=== PATIENT | female | born 1990 | race Hispanic/Latino ===

== ENCOUNTER 2021-03-15 18:05 | Inpatient (IN) | payer OTHER ==
[~2021-03-15] VITALS: Ht 172.7 cm; Wt 106.0 kg
[2021-03-15] MEDS ORDERED: RIBO400T PO ×2 (18:20)
[2021-03-15] MEDS ORDERED: TUMS750C22 PO (18:20)
[2021-03-15] MEDS ORDERED: GNP250TA9 PO (18:21)
[2021-03-15] MEDS ORDERED: HOME MED LIST COMPLETE! XX SCH (18:25)
[2021-03-15 18:28] VITALS: BP 120/76
[2021-03-15 18:56] LABS: HEMATOCRIT 37.9 % (36.0-47.0); HEMOGLOBIN 12.6 g/dl (12.0-15.5); MEAN CORPUSCULAR HEMOGLOBIN 27.8 pg (27.0-33.0); MEAN CORPUSCULAR HGB CONC 33.2 g/dl (32.0-36.5); MEAN CORPUSCULAR VOLUME 83.7 fl (80.0-96.0); PLATELET COUNT, AUTOMATED 278 10^3/uL (150-450); RED BLOOD COUNT 4.53 10^6/uL (4.00-5.40); WHITE BLOOD COUNT 10.4 10^3/uL (4.0-10.0)
[2021-03-15 20:24] VITALS: BP 134/73
[2021-03-15] MEDS ORDERED: METHYLERGONOVINE MALEATE 0.2 MG/ML VIAL (J2210) IM PRN (20:40)
[2021-03-15] MEDS ORDERED: OXYTOCIN DRIP 30 UNITS in IV 1 EA IV PRN ×6 (20:40)
[2021-03-15] MEDS ORDERED: OXYTOCIN INJ 10 UNITS/ML VIAL (J2590) IV PRN (20:40)
[2021-03-15] MEDS ORDERED: LIDOCAINE 1% MDV 20ML VIAL INFIL PRN (20:40)
[2021-03-15] MEDS ORDERED: OXYTOCIN DRIP 30 UNITS in IV 1 EA IV SCH (20:40)
[2021-03-15] MEDS ORDERED: CARBOPROST TROMETHAMINE 250 MCG/ML AMP IM PRN (20:40)
[2021-03-15] MEDS ORDERED: miSOPROStol 25MCG 1/4 TABLET PO ONE (20:40)
[2021-03-15] MEDS: LR 1,000 ML IV SCH (21:13)
[2021-03-15 21:15] VITALS: BP 117/71
--- NOTE | 2021-03-15 21:26 | HPEPDOC ---
Obstetrical History & Physical General Date of Admission Mar 15, 2021 at 18:05 History of Present Illness The patient is a 30yo at 41+1 week gestation by 11 week ultrasound. She presents to L&D today for induction of labor secondary to post-dates. She denies any vaginal bleeding, abnormal vaginal discharge, leakage of fluids, urinary symptoms, or regular contractions. She denies any new headaches, visual abnormalities, chest pain, worsening dyspnea, facial swelling, or upper extremity swelling. At this time, she continues to report regular movement. Chief Complaint: Induction of labor Care Care: Good Care Dating Final EDC: Mar 07, 2021 Final EDC by: 1st trimester (US) 1st Trimester Date: Aug 21, 2020 Weeks + Days: 11 (11+5) EGA at Admission: 41 (41+1) Antepartum Course Diagnos(e)s APC: 1. varicella non immune- will vaccine 2. migraines 3. varicose veines 4. excessive weight gain Height (inches): 68 Pre- weight (lbs.): 189 Admission Weight (lbs.): 233 Change in Weight (lbs.): 44 Past Medical History Past Obstetrical History : Past Obstetrical History: Multigravida Type of Delivery: Spontaneous Vaginal Del. Sex of Infant: Female Complications: No [employer] History: No pertinent history Past Medical History Medical History denies Family History Significant Family History: No pertinent family hx Social History Marital Status: Family situation: Spouse/partner home Psychosocial History: No pertinent psych hx * Smoker: non-smoker Alcohol: Denies Drugs: denies Abuse Violence Screening Have you been hit/kicked/slapp: No Have you been sexually assault: No Imunizations Tdap status: current Allergies Coded Allergies: No Known Allergies (Unverified , 03/15/21) Medications Scheduled Magnesium Oxide (Magnesium) 250 Mg Tablet, 1 TAB PO DAILY Riboflavin (Vitamin B2) (Riboflavin) 400 Mg Tablet, 1 TAB PO BID Riboflavin (Vitamin B2) (Riboflavin) 400 Mg Tablet, 1 TAB PO DAILY Scheduled PRN Calcium Carbonate (Tums) 300 Mg Tab.chew, 1 TAB PO BID PRN for HEARTBURN Physical Examination Physical Examination GENERAL: Alert and oriented times three. BREAST: . ABDOMEN: Gravid and non-tender to touch. FETUS: Is vertex (VTX) by sterile vaginal examination (SVE) HEART RATE: Regular rate and rhythm. LUNGS:normal work of breathing. EXTREMITIES: No edema. SVE: 350/-3 Vital Signs/I&O Vital Signs Date Time Temp Pulse Resp B/P (MAP) Pulse Ox O2 Delivery O2 Flow Rate FiO2 03/15/21 18:28 98.1 115 20 120/76 (91) Laboratory Data 24H LABS Laboratory Tests 2 03/15/21 18:36: Serology Scanned Report Hepatitis B Testing 03/15/21 18:40: Nucleated Red Blood Cells % (auto) 0.0, Syphilis Serology NONREACTIVE CBC/BMP Laboratory Tests 03/15/21 18:40 Urine Culture: No Growth Pertinent Laboratoy Data Blood Type: O+ RBC Antibody Screen: Negative HIV: Negative Hepatitis B: Negative Hepatitis C: Unknown Rapid Plasma Reagin: Nonreactive Rubella: Immune Varicella: Nonreactive Chlamydia/Gonorrhea: Negative Group B Streptococcus: Negative Quad Screen Test: Negative Cystic Fibrosis: Negative Glucose Tolerance Test: 113 Anatomy Ultrasound Placenta Location: Anterior Normal Anatomy: Yes Placenta Previa: No Vaginal Examination Dilation: 3 cm Effacement: 50% Station: -3 Cervical Consistency: Medium Cervical Position: Middle Presentation: Cephalic presentation Assessment Heart Rate (FHR): 135 Variability: Moderate Accelerations: Positive Decelerations: Late Tocometer Contractions: Yes Frequency: irregular Multi-drug resistant Organism: No history of MDRO Assessment/Plan Assessment Assessment: The patient is a 30yo at 41+1 week gestation by 11 week ultrasound. She presents to L&D today for induction of labor secondary to post- dates. Pelvis proven to 8lbs 4 oz. Pelvis Adequate for trial of labor. Category II FHRT, with intermitted late decels. APC: 1. varicella non immune- will vaccine 2. migraines 3. varicose veines 4. excessive weight gain #44LB SVE: 350/-3 GBS NEG Cephalic by exam EFW 3600 RH POS Placenta anterior, no previa Plan Plan: - Admit to L&D. - Consent signed and given to RN - CBC with type and screen. - EFM x2 - Anesthesia to see -Start fluid bolus and intrauterine rescussitation at this time and see if baby will recover, if patient does not pass contraction stress test, will proceed with CD - Risks of augmentation with Pitocin discussed with patient, will start augmentation if passes contraction stress test.. Labor and Delivery Counseling We will deliver your baby through the vagina with possible assistance of forceps or vacuum device if needed for maternal or indications. Forceps and vacuum are devices that can assist with vaginal delivery when normal pushing efforts cannot achieve delivery on their own or when delivery is needed in an emergency for baby's well-being. Medications may be required to induce or augment (help) your labor in order to achieve a vaginal delivery. An episiotomy may be required to help your baby to delivery vaginally. You may also require repair of any lacerations or tears of your vagina or vulva that are caused by delivery. In some cases, emergencies can occur that require an emergency section delivery so quickly that there may not be enough time to stop and complete consent forms for section. Understand that if this occurs, your providers will discuss the need for a section with you before they proceed with surgery. section is the delivery of your baby through an incision in your abdomen. In some situations, section may be safer to mom and baby than continuing labor and is only performed when clinically indicated. Risks of vaginal delivery include but are not limited to: Bleeding, infection, injury to the vagina, pelvic structures, injury to baby, damage to the uterus, reactions to anesthesia, uterine rupture, risk of hysterectomy for life threatening bleeding, or . Medications used to induce or augment labor may increase your risk for infection, uterine tachysystole, uterine rupture, heart rate abnormalities, need for emergency delivery or possible hysterectomy, and hemorrhage. Additional risks for use of forceps and vacuum include: increased risk of perineal and vaginal lacerations, risk of urinary or bowel incontinence, increased risk of injury to baby with bruising, scratches, hematomas on the head, or intracranial bleeding. TOÑO VILLAGOMEZ MD Mar 15, 2021 21:26
[2021-03-15 22:15] VITALS: BP 118/73
[2021-03-16] VITALS (32 sets, daily range): BP systolic 100–139; BP diastolic 54–98
[2021-03-16] MEDS: LR 1,000 ML IV SCH (04:16)
[2021-03-16] MEDS ORDERED: FENTANYL 2MCG/ML ROPIVACAINE 0.2% IN 0.9% NACL 100ML IVBAG As Ordered ONE (07:17)
[2021-03-16] MEDS ORDERED: LACTATED RINGER'S 1000 ML IV PRN (07:48)
[2021-03-16] MEDS ORDERED: NALOXONE INJ 0.4MG/1ML VIAL (J2310 PER 1MG) IV PRN (07:48)
[2021-03-16] MEDS ORDERED: FENTANYL/ROPIVACAINE/NACL BAG 100 ML EPIDURAL SCH (07:48)
[2021-03-16] MEDS ORDERED: EPIDURAL COMMENT XX SCH (07:48)
[2021-03-16] MEDS ORDERED: ePHEDrine SULFATE 25 MG/5 ML(5MG/ML) SYRINGE IV PRN (07:48)
[2021-03-16] MEDS ORDERED: EPIDURAL/PCA KEYS XX PRN (07:48)
[2021-03-16] MEDS ORDERED: ONDANSETRON 4MG/2ML VIAL IV PRN (07:48)
[2021-03-16] MEDS ORDERED: diphenhydrAMINE 50MG/ML VIAL (J1200) IV PRN (07:48)
[2021-03-16] MEDS ORDERED: REFRIGERATOR IV KEYS XX PRN (07:48)
--- NOTE | 2021-03-16 08:18 | IPNPDOC ---
Obstetrical Progress Note Date of Service Mar 16, 2021 Objective Vital Signs Date Time Temp Pulse Resp B/P (MAP) Pulse Ox O2 Delivery O2 Flow Rate FiO2 03/16/21 06:43 98.0 77 18 118/74 (89) Assessment Variability: Moderate Accelerations: Positive Decelerations: None Heart Rate Tracing: Category I Tocometer Contractions: Yes Frequency: regular Sterile Vaginal Examination Dilation: 5 cm Effacement (%): 70% Station: -2 Assessment and Plan Additional Comments NST CAT I reactive. SVE 5/75/-2. AROM meconium. Epidural in place and patient is comfortable. Will continue IOL with pitocin. KEESHA MARIN DO Mar 16, 2021 08:17
[2021-03-16] MEDS ORDERED: ACETAMINOPHEN TAB 650MG DOSE (2X325MG) PO PRN (11:55)
[2021-03-16] MEDS ORDERED: DOCUSATE SODIUM 100MG CAPSULE PO PRN (11:55)
[2021-03-16] MEDS ORDERED: ACETAMINOPHEN 500 MG TAB PO PRN (11:55)
[2021-03-16] MEDS ORDERED: IBUPROFEN 600MG TAB PO PRN (11:55)
[2021-03-16 12:02] LABS: CORD GAS ABE A -6.7; CORD GAS HCO3 A 21.1 MEQ/L; CORD GAS O2 SAT A 77.9 %; CORD GAS PCO2 A 50.4 mmHg; CORD GAS PH A 7.24 UNITS; CORD GAS PO2 A 40.9 mmHg; CORD GAS SBC A 18.7 MEQ/L; CORD GAS TCO2 A 22.7 MEQ/L
[2021-03-16 12:04] LABS: CORD GAS ABE V -3.2; CORD GAS HCO3 V 24.3 MEQ/L; CORD GAS O2 SAT V 44.9 %; CORD GAS PH V 7.28 UNITS; CORD GAS SBC V 20.5 MEQ/L
--- NOTE | 2021-03-16 12:06 | DNPDOC ---
[facility] Delivery Note Delivery Note DATE OF DELIVERY: 03/16/21 PREDELIVERY DIAGNOSIS: 41+2/7 weeks, induction of labor for late term POST DELIVERY DIAGNOSIS: Delivered. PROCEDURE: vaginal delivery, labial laceration repair SPECIAL TESTER: Dr. Mark Marin DO ANESTHESIA: epidural ESTIMATED BLOOD LOSS: 200 mL. FINDINGS: 3870g , Score 8/9, nuchal cord times 0 DELIVERY SUMMARY: Ms. Monteiro is a 30yo at 41+2 who was admitted for induction of labor for late term. She progressed to C/C/+3 and with good maternal effort delivered the head followed by the corpus without difficulty. The baby had spontaneous movement and cry. The cord clamping was delayed 60s then was cut by the father of the baby. Cord blood and gasses were obtained. The placenta was delivered in-tact, thick clot and port wine appearing stain were noted. It was sent for pathology. The uterus was firm with bimanual massage and pitocin. Vicryl rapid was used to repair a right labial laceration. Vaginal bleeding remained scant. The sponge, lap and needle counts were correct. There were no complications. MARK MARIN DO Mar 16, 2021 12:06
[2021-03-16] MEDS ORDERED: HOME MED LIST COMPLETE! XX SCH (14:20)
[2021-03-16] MEDS ORDERED: PRENTAB9 PO (14:41)
[2021-03-16] MEDS ORDERED: TUMS750C22 PO (14:41)
[2021-03-16] MEDS ORDERED: ESSE250T PO (14:41)
[2021-03-16] MEDS ORDERED: RIBO400T PO (14:41)
[2021-03-16] MEDS: IBUPROFEN 800 MG TAB PO PRN (17:24)
[2021-03-17 06:00] VITALS: BP 131/83
--- NOTE | 2021-03-17 07:40 | IPNPDOC ---
Progress Note Date of Service: Mar 17, 2021 Day#: 1 Progress Note SUBJECT: Ms. Monteiro is a 30yo PPD2 s/p after induction for late term. She has been ambulating, voiding spontaneously without issue and tolerating regular diet. Breast feeding without issue. Reports lochia is less than a normal period. Patient is ambulating well. Reports some cramping with . Denies any pain. Voiding and passing flatus without difficulty. OBJECTIVE: VITAL SIGNS: Within normal limits, afebrile. Alert and oriented times three. No increased WOB Heart rate: non-tachycardic Abdomen: Fundus firm at U-2. Soft, NTTP. [Minimal] lochia per patient ASSESSMENT: Ms. Monteiro is a 30yo PPD2 s/p after induction for late term. Vitals within normal limits, afebrile, hemodynamically stable with no evidence of infection. PLAN: 1. Discharge to home today. 2. Tylenol and Motrin for pain. 3. Encourage breast feeding and ambulation. 4. Desires interval IUD for contraception. 5. Routine PP visit in 6 weeks in clinic. 6. Discussed return precautions at length and activity limitations (pelvic rest). 7. Encouraged varicella vaccination. VS, I&O, 24H, Fishbone Vital Signs/I&O Vital Signs Date Time Temp Pulse Resp B/P (MAP) Pulse Ox O2 Delivery O2 Flow Rate FiO2 03/17/21 06:00 98.2 66 18 131/83 (99) 99 Room Air I&O- Last 24 Hours up to 6 AM 03/17/21 06:00 Intake Total 2300 ml Output Total 800 ml Balance 1500 ml Laboratory Data 24H LABS Laboratory Tests 2 03/16/21 11:54: Cord Arterial Blood pH 7.240, Cord Arterial Blood PCO2 50.4, Cord Arterial Blood PO2 40.9, Cord Arterial Blood HCO3 21.1, Cord Arterial Blood Total CO2 22.7, Cord Arterial Blood Base Excess -6.7, Cord Arterial Base Excess (Standard 18.7, Cord Arterial Bld Oxygen Saturation 77.9, Cord Venous Blood pH 7.280, Cord Venous Blood PCO2 53.0, Cord Venous Blood PO2 22.0, Cord Venous Blood HCO3 24.3, Cord Venous Blood Total CO2 26.0, Cord Venous Base Excess (Actual) -3.2, Cord Venous Base Excess (Standard) 20.5, Cord Venous Blood Oxygen Saturation 44.9 KEESHA MARIN DO Mar 17, 2021 07:40
--- NOTE | 2021-03-17 07:41 | OBDS ---
[facility] Obstetrical Discharge Sum. A/P, Post Course List any complications Ms. Monteiro is a 30yo who had a vaginal delivery after induction for late term. She has been ambulating, voiding spontaneously without issue and tolerating regular diet. Breast feeding without issue. Reports lochia is less than a normal period. Patient is ambulating well. Reports some cramping with . Denies any pain. Voiding and passing flatus without difficulty. Vitals within normal limits, afebrile, hemodynamically stable with no evidence of infection. PLAN: 1. Discharge to home today. 2. Tylenol and Motrin for pain. 3. Encourage breast feeding and ambulation. 4. Desires interval IUD for contraception. 5. Routine visit in 6 weeks in clinic. 6. Discussed return precautions at length and activity limitations (pelvic rest). 7. Encouraged varicella vaccination. KEESHA MARIN DO Mar 17, 2021 07:41
[2021-03-17] MEDS: IBUPROFEN 800 MG TAB PO PRN (08:14)
[2021-03-17] MEDS ORDERED: INFLUENZA QUADRIVALENT PF VACCINE 0.5ML SYRINGE IM ONE (09:00)
[2021-03-17] MEDS ORDERED: PRENATAL VITAMINS CHEWABLE TABLET PO SCH (09:00)
[2021-03-17] MEDS: LR 1,000 ML IV SCH ×2 (10:02→10:03)
== END 2021-03-17 12:50 | disposition home or self-care (01) | DRG 807 ==
LOC: M LDI 18:05 → M OBS 03-16 13:15
PROVIDERS: ADMIT Obstetrics & Gynecology; ATTEND Obstetrics & Gynecology
PROC: 3E033VJ Introduction of Other Hormone into Peripheral Vein, Percutaneous Approach (ICD-10-PCS; 2021-03-15)
PROC: 10E0XZZ Delivery of Products of Conception, External Approach (ICD-10-PCS; principal; 2021-03-16)
PROC: 10907ZC Drainage of Amniotic Fluid, Therapeutic from Products of Conception, Via Natural or Artificial Opening (ICD-10-PCS; 2021-03-16)
DX: O48.0 Post-term pregnancy (principal); Z37.0 Single live birth; Z3A.41 41 weeks gestation of pregnancy; O22.03 Varicose veins of lower extremity in pregnancy, third trimester; O26.03 Excessive weight gain in pregnancy, third trimester; O77.0 Labor and delivery complicated by meconium in amniotic fluid

== ENCOUNTER 2023-07-17 18:14 | Outpatient (CLI) | payer OTHER ==
[~2023-07-17] VITALS: Ht 172.7 cm; Wt 107.7 kg
[~2023-07-17 18:14] MED LIST: ESSE250T PO; GNP250TA9 PO; PRENTAB9 PO; RIBO400T PO; TUMS750C22 PO
[2023-07-17 18:42] VITALS: BP 128/77
[2023-07-17] MEDS ORDERED: HOME MED LIST COMPLETE! XX SCH (18:50)
== END 2023-07-17 19:39 | disposition home or self-care (01) ==
LOC: M LDO 18:14
PROVIDERS: ATTEND Advanced Practice Midwife
DX: O47.1 False labor at or after 37 completed weeks of gestation (principal); Z3A.38 38 weeks gestation of pregnancy; O99.283 Endocrine, nutritional and metabolic diseases complicating pregnancy, third trimester; E86.0 Dehydration
CPT/HCPCS: 59025; 76815; G0463

== ENCOUNTER 2023-07-27 07:58 | Inpatient (IN) | payer OTHER ==
[~2023-07-27] VITALS: Ht 172.7 cm; Wt 108.1 kg
[2023-07-27] VITALS (29 sets, daily range): BP systolic 115–175; BP diastolic 57–103; O2SAT 97–100
[2023-07-27] MEDS ORDERED: LACTATED RINGER'S 1000 ML IV STA (08:42)
[2023-07-27] MEDS ORDERED: AMPICILLIN SOD 2 GM in D5W MINI-BAG PLUS 100 ML IV STA (08:42)
[2023-07-27] MEDS ORDERED: METHYLERGONOVINE MALEATE 0.2MG/ML 1ML VIAL IM PRN (08:45)
[2023-07-27] MEDS ORDERED: LIDOCAINE 1% MDV 20ML VIAL INFIL PRN (08:45)
[2023-07-27] MEDS ORDERED: TRANEXAMIC ACID INJection 1,000 MG in NS 100 ML IV PRN (08:45)
[2023-07-27] MEDS ORDERED: LR 1,000 ML IV SCH ×2 (08:45→13:40)
[2023-07-27] MEDS ORDERED: OXYTOCIN INJ 10UNITS/ML 1ML VIAL IM PRN (08:45)
[2023-07-27] MEDS ORDERED: CARBOPROST TROMETHAMINE 250 MCG/ML AMP IM PRN (08:45)
[2023-07-27] MEDS ORDERED: OXYTOCIN DRIP 30 UNITS in IV 1 EA IV PRN ×6 (08:45)
[2023-07-27] MEDS ORDERED: FAMO20TA PO (08:50)
[2023-07-27] MEDS ORDERED: HOME MED LIST COMPLETE! XX SCH (09:05)
[2023-07-27 09:32] LABS: HEMATOCRIT 34.6 % (36.0-47.0); HEMOGLOBIN 11.7 g/dl (12.0-15.5); MEAN CORPUSCULAR HEMOGLOBIN 27.9 pg (27.0-33.0); MEAN CORPUSCULAR HGB CONC 33.8 g/dl (32.0-36.5); MEAN CORPUSCULAR VOLUME 82.6 fl (80.0-96.0); PLATELET COUNT, AUTOMATED 217 10^3/uL (150-450); RED BLOOD COUNT 4.19 10^6/uL (4.00-5.40)
[2023-07-27] MEDS ORDERED: NALOXONE INJ 0.4MG/1ML VIAL IV PRN (09:45)
[2023-07-27] MEDS ORDERED: ePHEDrine SULFATE 25 MG/5 ML(5MG/ML) SYRINGE IVP PRN (09:45)
[2023-07-27] MEDS ORDERED: EPIDURAL/PCA KEYS XX PRN (09:45)
[2023-07-27] MEDS ORDERED: LR 500 ML IV PRN (09:45)
[2023-07-27] MEDS ORDERED: ONDANSETRON 4MG 2ML VIAL IV PRN (09:45)
[2023-07-27] MEDS ORDERED: diphenhydrAMINE 50MG/ML VIAL IV PRN (09:45)
[2023-07-27] MEDS ORDERED: FENTANYL/ROPIVACAINE/NACL BAG 100 ML EPIDURAL SCH (09:45)
[2023-07-27] MEDS ORDERED: FAMOTIDINE IV BAG 20 MG in IV 1 EA IV ONE (09:55)
[2023-07-27] MEDS ORDERED: AMPICILLIN SOD 1 GM in D5W MINI-BAG PLUS 50 ML IV SCH (13:00)
[2023-07-27] MEDS ORDERED: MOM 30ML SUSPENSION UDC PO PRN (13:40)
[2023-07-27] MEDS ORDERED: OXYTOCIN DRIP 30 UNITS in IV 1 EA IV SCH ×4 (13:40)
[2023-07-27] MEDS ORDERED: DOCUSATE SODIUM 100MG CAPSULE PO PRN (13:40)
[2023-07-27] MEDS ORDERED: ACETAMINOPHEN TAB 650MG DOSE (2X325MG) PO PRN (13:40)
[2023-07-27] MEDS ORDERED: DIBUCAINE 1% OINTMENT 30GM TOP PRN (13:40)
[2023-07-27] MEDS ORDERED: METOCLOPRAMIDE INJ 10MG/2ML VIAL IV PRN (13:40)
[2023-07-27] MEDS ORDERED: IBUPROFEN 600MG TAB PO PRN (13:40)
[2023-07-27] MEDS ORDERED: ACETAMINOPHEN 500 MG TAB PO PRN (13:40)
[2023-07-27] MEDS ORDERED: METHYLERGONOVINE MALEATE 0.2 MG TAB PO PRN (13:40)
[2023-07-27] MEDS: RHOGAM 300MCG (1500IU) INJ IM SCH ×2 (18:17→19:45)
[2023-07-28] MEDS: IBUPROFEN 800 MG TAB PO PRN ×2 (00:15→09:10)
[2023-07-28 06:00] VITALS: BP 114/69; O2SAT 99
[2023-07-28] MEDS ORDERED: PRENATAL VITAMINS CHEWABLE TABLET PO SCH ×2 (09:00)
[2023-07-28 09:11] LABS: URIC ACID 3.2 MG/DL (3.1-7.8)
[2023-07-28 09:13] LABS: LDH LACTATE DEHYDROGENASE 271 U/L (120-246)
[2023-07-28 09:14] LABS: ALT/SGPT 10 U/L (7.0-40); AST/SGOT 19 U/L (<34); BILIRUBIN,TOTAL 0.2 MG/DL (0.3-1.2); GLOMERULAR FILTRATION RATE > 60.0 (>60)
[2023-07-29] MEDS ORDERED: MEASLES,MUMPS,RUBELLA VACCINE INJ (MMR-II) SC.IMMUN ONE (09:00)
== END 2023-07-28 12:00 | disposition home or self-care (01) | DRG 807 ==
LOC: M LDO 07:58 → M LDI 08:48 → M OBS 15:35
PROVIDERS: ADMIT Obstetrics & Gynecology; ATTEND Obstetrics & Gynecology
PROC: 10E0XZZ Delivery of Products of Conception, External Approach (ICD-10-PCS; principal; 2023-07-27)
DX: O99.824 Streptococcus B carrier state complicating childbirth (principal); Z37.0 Single live birth; O77.0 Labor and delivery complicated by meconium in amniotic fluid; Z3A.40 40 weeks gestation of pregnancy